=== PATIENT | male | born 1945 | race Caucasian/White ===

== ENCOUNTER 2018-02-15 11:00 | Day surgery (SDC) | payer MEDICARE ==
[~2018-02-15] VITALS: Ht 182.9 cm; Wt 118.8 kg
[~2018-02-15 11:00] MED LIST: ACET500 PO; ACETAMINOPHEN-1 EACH; ALBU90OI61 INH; ALLEGRA ALLERG180 M1 PO; BETA1 PO; Benicar Hct 401 EAC1 PO; CEFD300 PO; CETI10 PO; CYCL10 PO; DIAZ5 PO; DIPASPER PO; FENO160 PO; FISH1000 PO; FLECTOR PATCH; FLUT.05NI; FLUT44OIA IH; FLUT44OIA INH; Ferrous Glucon324 M1 PO; GLIM2 PO; Glucophage1000 MG PO; HYDACE5 PO; HYDCHL25 PO; MAGOXI400 PO; MELO7.5 PO; METF500 PO; MONT10T PO; NIFE30ER PO; OLME40 PO; ONDA4 PO
== END 2018-02-15 13:56 | disposition home or self-care (01) ==
LOC: ORSCSDS 11:00
PROVIDERS: Internal Medicine Gastroenterology
PROC: 0DBL8ZX Excision of Transverse Colon, Via Natural or Artificial Opening Endoscopic, Diagnostic (ICD-10-PCS; principal; 2018-02-15 12:45)
PROC: 0DBH8ZX Excision of Cecum, Via Natural or Artificial Opening Endoscopic, Diagnostic (ICD-10-PCS; principal; 2018-02-15 12:45)
DX: Z86.010 Personal history of colon polyps (principal); Z80.0 Family history of malignant neoplasm of digestive organs; D12.0 Benign neoplasm of cecum; D12.3 Benign neoplasm of transverse colon; K57.30 Diverticulosis of large intestine without perforation or abscess without bleeding; K64.8 Other hemorrhoids; E11.9 Type 2 diabetes mellitus without complications; I10 Essential (primary) hypertension; G47.33 Obstructive sleep apnea (adult) (pediatric); J45.909 Unspecified asthma, uncomplicated; Z87.891 Personal history of nicotine dependence; Z79.899 Other long term (current) drug therapy
CPT/HCPCS: 82947; 88305; J2250; J7120

== ENCOUNTER 2019-02-22 12:03 | Day surgery (SDC) | payer MEDICARE ==
[~2019-02-22] VITALS: Ht 182.9 cm; Wt 119.7 kg
[~2019-02-22 12:03] MED LIST changes: +ASCO500 PO; +BENZ100A PO; +CLOP75 PO; +DILT180 PO; +FISH OIL 1,0001 EAC1 PO; +FLONASE ALLERG9.9 ML; +FOLBIC RF TABL1 EACH PO; +GLIM4 PO; +Ipratropium Bro15 ML NS; +Ipratropium Bro30 ML INH; +Lipitor20 MG PO; +MOVE FREE JOIN1 EACH PO; +OCUVITE EYE +1 EACH PO; +PIOG15 PO; +XARELTO20 MG PO
[2019-02-22] MEDS ORDERED: ALLER-FEX180 MG PO (12:47)
[2019-02-22] MEDS ORDERED: Ipratropium Bro30 ML INH (12:48)
[2019-02-22] MEDS ORDERED: Flovent 44 mc10.6 GM INH (12:48)
[2019-02-22] MEDS ORDERED: LO-DOSE ASPIRIN81 MG PO (12:49)
[2019-02-22] MEDS ORDERED: OLME20 PO (12:49)
[2019-02-22] MEDS ORDERED: VOLTAREN100 GM (12:50)
[2019-02-22] MEDS ORDERED: METO25ER PO (12:50)
[2019-02-22] MEDS ORDERED: BETA.05TCA (12:51)
--- NOTE | 2019-02-22 14:26 | NUR ---
02/22/19 1426 Chantal Reynaga INCOMPLETE PREP PROCEDURE ABORTED WITHOUT REACHING CECUM.
--- NOTE | 2019-02-22 14:37 | NUR ---
02/22/19 1437 Chantal Reynaga PATIENT WAS SENT TO DR LOWERY'S OFFICE TO GET INFORMATION ON RESCHEDULE AND NEW PREP INSTRUCTIONS. [facility] AND THAT RESTARTING XARELTO WILL DEPEND ON WHEN NEXT PROCEDURE IS SCHEDULED PATIENT ADVISED TO STAY ON FULL LIQUID DIET NOW AND CLEAR LIQUIDS WILL DEPEND ON WHEN NEXT PROCEDURE WILL BE. PATIENT AND BOTH VERBALIZE UNDERSTANDING OF THIS AND ARE GOING STRAIGHT TO THE OFFICE.
== END 2019-02-22 13:40 | disposition home or self-care (01) ==
LOC: ORSCSDS 12:03
PROVIDERS: Internal Medicine Gastroenterology
PROC: 0DJD8ZZ Inspection of Lower Intestinal Tract, Via Natural or Artificial Opening Endoscopic (ICD-10-PCS; principal; 2019-02-22 13:15)
DX: Z12.11 Encounter for screening for malignant neoplasm of colon (principal); Z86.010 Personal history of colon polyps; I10 Essential (primary) hypertension; E11.9 Type 2 diabetes mellitus without complications; J45.909 Unspecified asthma, uncomplicated; E66.9 Obesity, unspecified; G47.33 Obstructive sleep apnea (adult) (pediatric); Z79.84 Long term (current) use of oral hypoglycemic drugs; Z79.899 Other long term (current) drug therapy
CPT/HCPCS: 82947; J2704; J7120

== ENCOUNTER 2019-02-26 06:43 | Day surgery (SDC) | payer MEDICARE ==
[~2019-02-26] VITALS: Ht 182.9 cm; Wt 120.7 kg
[~2019-02-26 06:43] MED LIST changes: +ALLER-FEX180 MG PO; +BETA.05TCA; +Flovent 44 mc10.6 GM INH; +LO-DOSE ASPIRIN81 MG PO; +METO25ER PO; +OLME20 PO; +VOLTAREN100 GM
--- NOTE | 2019-02-26 08:34 | NUR ---
02/26/19 0834 Chantal Reynaga GROUNDING PAD ON RIGHT FLANK--NO PROBLEMS
== END 2019-02-26 09:33 | disposition home or self-care (01) ==
LOC: ORSCSDS 06:43
PROVIDERS: Internal Medicine Gastroenterology
PROC: 0DBP8ZX Excision of Rectum, Via Natural or Artificial Opening Endoscopic, Diagnostic (ICD-10-PCS; principal; 2019-02-26 08:00)
PROC: 0DBL8ZX Excision of Transverse Colon, Via Natural or Artificial Opening Endoscopic, Diagnostic (ICD-10-PCS; principal; 2019-02-26 08:00)
PROC: 0DBK8ZX Excision of Ascending Colon, Via Natural or Artificial Opening Endoscopic, Diagnostic (ICD-10-PCS; principal; 2019-02-26 08:00)
DX: Z12.11 Encounter for screening for malignant neoplasm of colon (principal); Z86.010 Personal history of colon polyps; D12.2 Benign neoplasm of ascending colon; D12.3 Benign neoplasm of transverse colon; K62.1 Rectal polyp; E11.9 Type 2 diabetes mellitus without complications; I48.91 Unspecified atrial fibrillation; Z79.01 Long term (current) use of anticoagulants; G47.33 Obstructive sleep apnea (adult) (pediatric); Z87.891 Personal history of nicotine dependence; E66.01 Morbid (severe) obesity due to excess calories; Z68.36 Body mass index [BMI] 36.0-36.9, adult; Z79.899 Other long term (current) drug therapy
CPT/HCPCS: 82947; 88305; J2704; J7120

== ENCOUNTER 2019-03-04 23:18 | Observation (INO) | payer MEDICARE ==
[~2019-03-04] VITALS: Ht 182.9 cm; Wt 118.0 kg
[2019-03-05 00:10] LABS: BASOPHILS ABSOLUTE AUTO 0.04 K/mm3 (0.00-0.23); BASOPHILS PERCENT AUTO 1 % (0-2); EOSINOPHILS ABSOLUTE AUTO 0.12 K/mm3 (0.00-0.68); EOSINOPHILS PERCENT AUTO 2 % (0-6); Hematocrit 38.8 % (37.0-53.0); Hemoglobin 12.6 g/dL (13.5-17.5); IMMATURE GRAN ABSOLUTE AUTO 0.03 K/mm3 (0.00-0.10); IMMATURE GRAN PERCENT AUTO 1 % (0-1); LYMPHOCYTES ABSOLUTE AUTO 1.89 K/mm3 (0.84-5.20); LYMPHOCYTES PERCENT AUTO 35 % (21-46); MONOCYTES ABSOLUTE AUTO 0.45 K/mm3 (0.16-1.47); MONOCYTES PERCENT AUTO 8 % (4-13); Mean Corpuscular HGB 30.9 pg (26.0-34.0); Mean Corpuscular HGB Conc 32.5 g/dL (31.5-36.5); Mean Corpuscular Volume 95 fL (80-100); Mean Platelet Volume 10.6 fL (9.1-12.4); NEUTROPHILS ABSOLUTE AUTO 2.92 K/mm3 (1.96-9.15); NEUTROPHILS PERCENT AUTO 54 % (41-73); Platelet Count 127 K/mm3 (150-400); RDW Coefficient Variation 13.5 % (11.7-14.2); RDW Standard Deviation 47.4 fL (35.1-46.3); Red Blood Cell Count 4.08 M/mm3 (4.30-5.90); White Blood Cell Count 5.45 K/mm3 (4.00-11.30)
[2019-03-05 00:29] LABS: Alanine Aminotransfer (ALT/SGP 43 U/L (12-78); Albumin, Blood 3.5 g/dL (3.4-5.0); Albumin/Globulin Ratio 1.1 (0.8-1.8); Alk Phos 27 U/L (50-136); Anion Gap 7 mmol/L (6-16); Aspartate Aminotrans (AST/SGOT 22 U/L (12-37); Bilirubin, Total 0.5 mg/dL (0.1-1.0); Blood Urea Nitrogen 23 mg/dL (8-24); Bun/Creatinine Ratio 34.6 (12.0-20.0); CO2, Blood 28 mmol/L (21-32); Calcium, Blood 8.7 mg/dL (8.5-10.1); Chloride, Blood 107 mmol/L (98-108); Creatinine, Blood 0.66 mg/dL (0.60-1.20); Globulin, Blood 3.3 g/dL (2.2-4.0); Glomerular Filtration Rate >60 (60-); Glucose, Blood 109 mg/dL (70-99); Sodium, Blood 142 mmol/L (136-145); Total Protein, Blood 6.8 g/dL (6.4-8.2)
[2019-03-05 01:07] LABS: International Normalized Ratio 1.19; Prothrombin Time Results 12.4 Sec (9.7-11.5)
[2019-03-05 04:48] LABS: Hematocrit 35.6 % (37.0-53.0); Hemoglobin 11.4 g/dL (13.5-17.5)
[2019-03-05 04:49] LABS: Hematocrit 35.7 % (37.0-53.0); Hemoglobin 11.4 g/dL (13.5-17.5); Mean Corpuscular HGB 30.5 pg (26.0-34.0); Mean Corpuscular HGB Conc 31.9 g/dL (31.5-36.5); Mean Corpuscular Volume 96 fL (80-100); Mean Platelet Volume 10.7 fL (9.1-12.4); Platelet Count 135 K/mm3 (150-400); RDW Coefficient Variation 13.5 % (11.7-14.2); RDW Standard Deviation 47.6 fL (35.1-46.3); Red Blood Cell Count 3.74 M/mm3 (4.30-5.90); White Blood Cell Count 4.79 K/mm3 (4.00-11.30)
[2019-03-05 05:12] LABS: Alanine Aminotransfer (ALT/SGP 36 U/L (12-78); Albumin, Blood 3.1 g/dL (3.4-5.0); Alk Phos 21 U/L (50-136); Anion Gap 6 mmol/L (6-16); Aspartate Aminotrans (AST/SGOT 13 U/L (12-37); Bilirubin, Total 0.5 mg/dL (0.1-1.0); Blood Urea Nitrogen 23 mg/dL (8-24); Bun/Creatinine Ratio 34.5 (12.0-20.0); CO2, Blood 28 mmol/L (21-32); Calcium, Blood 8.3 mg/dL (8.5-10.1); Chloride, Blood 107 mmol/L (98-108); Creatinine, Blood 0.67 mg/dL (0.60-1.20); Glomerular Filtration Rate >60 (60-); Glucose, Blood 103 mg/dL (70-99); Potassium, Blood 3.8 mmol/L (3.5-5.5); Sodium, Blood 141 mmol/L (136-145); Total Protein, Blood 6.1 g/dL (6.4-8.2)
--- NOTE | 2019-03-05 06:06 | NUR ---
having trouble sleeping, turned off oximeter due to alarm, nurse informed RT who said they would bring paperwork, tried skds but decided they were keeping him awake and thus requested they be removed, tele attached hr/r 62/nsr, up walking to bathroom on own, bed alarm on, no stool but red stripes on toilet paper, vss, and states he is feeling fine
--- NOTE | 2019-03-05 07:25 | NUR ---
a+o, able to make needs known, call light in reach, saline locked, Cpap, refused skds and oximeter, SBAR report given to day shift
--- NOTE | 2019-03-05 08:41 | NUR ---
PT HAD MED BROWN FORMED STOOL WITH SMALL AMOUNT OF RED BLOOD IN TOILET. PT REPORTS IMPROVEMENT IN BLEEDING. DR. LEWIS CONSULT CALLED IN.
[2019-03-05 10:59] LABS: Hematocrit 38.4 % (37.0-53.0); Hemoglobin 12.4 g/dL (13.5-17.5)
--- NOTE | 2019-03-05 16:04 | NUR ---
PT BROUGHT FROM ROOM 312. AT BEDSIDE. TOLERATED WELL.
--- NOTE | 2019-03-05 16:09 | NUR ---
1515 PT TO DAY SURGERY FOR UPPER ENDOSCOPY.
--- NOTE | 2019-03-05 16:48 | NUR ---
03/05/19 1648 Darrin Roca Bite Block PlacedPatient to ENDO 1History, Chart, Medications and Allergies reviewed before start of procedure.MONITOR INTACT WITH CONTINUOUS PULSE OXIMETRY AND INTERMITTENT BP.O2 VIA N/C INTACT THROUGHOUT SEDATION/PROCEDURE.See Anesthesia record
--- NOTE | 2019-03-05 17:37 | NUR ---
SHIFT SUMMARY. PT HAS RETURNED FROM DAY SURGERY, NO BLEEDING FOUND ON ENDOSCOPY PER RN REPORT. PT IS TO BE NPO AFTER MIDNIGHT FOR COLONOSCOPY TOMORROW AFTERNOON. PT SWALLOWING WITHOUT ISSUE.
--- NOTE | 2019-03-05 18:21 | NUR ---
SPOKE WITH DR. LEWIS. PT IS TO BE NPO AT 1800, START GOLYETLY TONIGHT AND FINISH IN THE MORNING FOR COLONOSCOPY IN THE AFTERNOON.
[2019-03-05 19:40] LABS: Hematocrit 36.2 % (37.0-53.0); Hemoglobin 11.7 g/dL (13.5-17.5)
[2019-03-06 05:38] LABS: Hematocrit 36.9 % (37.0-53.0); Hemoglobin 12.1 g/dL (13.5-17.5)
--- NOTE | 2019-03-06 07:25 | NUR ---
drinking medication for procedure today, a+o, call light in reach, saline locked, on room air, still having brown stools thought they are soft, anvik, used cpap during night
--- NOTE | 2019-03-06 18:17 | NUR ---
STUDENT RN ASSISTING WITH PREOPERATIVE CARE. AGREE WITH HER CHARTING AND CARE. IV TO LEFT FA DC'D, REPORTED INFILTRATED WHEN RECEIVED REPORT FROM MED FLOOR RN. TENDER. ADDITIONAL IV TO L HAND PATENT, USED FOR PROCEDURE.
--- NOTE | 2019-03-06 18:26 | NUR ---
03/06/19 1826 Darrin Roca Patient to ENDO 1History, Chart, Medications and Allergies reviewed before start of procedure.MONITOR INTACT WITH CONTINUOUS PULSE OXIMETRY AND INTERMITTENT BP.O2 VIA N/C INTACT THROUGHOUT SEDATION/PROCEDURE.See Anesthesia record
--- NOTE | 2019-03-06 19:16 | NUR ---
SHIFT SUMMARY PATIENT A&O X4, INDEPENDENT IN THE ROOM. DENIES ANY PAIN OR SOB THIS SHIFT. NPO FOR COLONSCOPY. GO LIGHTY PREP DONE THIS AM. PATIENT DENIES ANY BLOODY STOOLS THIS SHIFT. RN MEDICATED THROUGHOUT SHIFT PER E JAN. PATIENT BACK FROM PROCEDURE AT 1850. VSS. POST OP VS STARTED. REPORT GIVEN TO ONCOMING RN.
== END 2019-03-06 20:32 | disposition home or self-care (01) ==
LOC: ER 23:18 → MEDS 23:19
PROVIDERS: Emergency Medicine; Family Medicine; Internal Medicine Gastroenterology; ADMIT Internal Medicine
PROC: 0DJ08ZZ Inspection of Upper Intestinal Tract, Via Natural or Artificial Opening Endoscopic (ICD-10-PCS; 2019-03-05)
PROC: 0DJD8ZZ Inspection of Lower Intestinal Tract, Via Natural or Artificial Opening Endoscopic (ICD-10-PCS; principal; 2019-03-06 16:00)
DX: K64.8 Other hemorrhoids (principal); K29.00 Acute gastritis without bleeding; K20.9 Esophagitis, unspecified; I48.91 Unspecified atrial fibrillation; D64.9 Anemia, unspecified; M79.81 Nontraumatic hematoma of soft tissue; E11.9 Type 2 diabetes mellitus without complications; I25.10 Atherosclerotic heart disease of native coronary artery without angina pectoris; J45.909 Unspecified asthma, uncomplicated; G47.30 Sleep apnea, unspecified; Z86.73 Personal history of transient ischemic attack (TIA), and cerebral infarction without residual deficits; Z79.899 Other long term (current) drug therapy; Z88.8 Allergy status to other drugs, medicaments and biological substances; Z99.89 Dependence on other enabling machines and devices
CPT/HCPCS: 36415; 80053; 82947; 85014; 85018; 85025; 85027; 85610; 85730; 86850; 86900; 86901; 94640; 94660; 94762; 99284-25; G0378; J2405; J2704; J7120

== ENCOUNTER 2021-07-02 11:56 | Day surgery (SDC) | payer MEDICARE ==
[~2021-07-02] VITALS: Ht 182.9 cm; Wt 119.1 kg
[~2021-07-02 11:56] MED LIST changes: +ALBU90OI INH; +ALLEGRA ALLERG180 MG PO; +ATOR20 PO; +ATROVENT HFA12.9 GM INH; +Betamethasone V15 GM; +FERROUS GLUCON324 M7 PO; +FLONASE SENSIM5.9 M1; +FLOVENT HFA12 GM INH; +GLUCOPHAGE1000 M1 PO; +LOSA50 PO; +MAGNESIUM OXID500 MG PO; +Ropinirole HCl0.5 MG PO; +Vitamin B-12100 MCG PO
== END 2021-07-02 14:20 | disposition home or self-care (01) ==
LOC: ORSCSDS 11:56
PROVIDERS: Internal Medicine Gastroenterology
PROC: 0DBL8ZX Excision of Transverse Colon, Via Natural or Artificial Opening Endoscopic, Diagnostic (ICD-10-PCS; principal; 2021-07-02 13:15)
DX: Z12.11 Encounter for screening for malignant neoplasm of colon (principal); Z86.010 Personal history of colon polyps; D12.3 Benign neoplasm of transverse colon; K64.8 Other hemorrhoids; K57.30 Diverticulosis of large intestine without perforation or abscess without bleeding; I48.91 Unspecified atrial fibrillation; G47.33 Obstructive sleep apnea (adult) (pediatric); E78.5 Hyperlipidemia, unspecified; E11.9 Type 2 diabetes mellitus without complications; E66.9 Obesity, unspecified; Z68.35 Body mass index [BMI] 35.0-35.9, adult; Z79.84 Long term (current) use of oral hypoglycemic drugs; Z79.899 Other long term (current) drug therapy
CPT/HCPCS: 82947; 88305; J2704; J7120

== ENCOUNTER 2021-08-05 10:16 | Emergency (ER) | payer MEDICARE ==
[~2021-08-05] VITALS: Ht 182.9 cm; Wt 104.3 kg
[2021-08-05 11:16] LABS: BASOPHILS ABSOLUTE AUTO 0.03 K/mm3 (0.00-0.23); BASOPHILS PERCENT AUTO 1 % (0-2); EOSINOPHILS ABSOLUTE AUTO 0.06 K/mm3 (0.00-0.68); EOSINOPHILS PERCENT AUTO 1 % (0-6); Hematocrit 42.7 % (37.0-53.0); Hemoglobin 14.6 g/dL (13.5-17.5); IMMATURE GRAN ABSOLUTE AUTO 0.02 K/mm3 (0.00-0.10); IMMATURE GRAN PERCENT AUTO 0 % (0-1); LYMPHOCYTES ABSOLUTE AUTO 1.46 K/mm3 (0.84-5.20); LYMPHOCYTES PERCENT AUTO 26 % (21-46); MONOCYTES ABSOLUTE AUTO 0.35 K/mm3 (0.16-1.47); MONOCYTES PERCENT AUTO 6 % (4-13); Mean Corpuscular HGB 31.3 pg (26.0-34.0); Mean Corpuscular HGB Conc 34.2 g/dL (31.5-36.5); Mean Corpuscular Volume 92 fL (80-100); Mean Platelet Volume 10.8 fL (9.1-12.4); NEUTROPHILS ABSOLUTE AUTO 3.64 K/mm3 (1.96-9.15); NEUTROPHILS PERCENT AUTO 65 % (41-73); Platelet Count 206 K/mm3 (150-400); RDW Coefficient Variation 13.4 % (11.7-14.2); RDW Standard Deviation 45.1 fL (35.1-46.3); Red Blood Cell Count 4.66 M/mm3 (4.30-5.90); White Blood Cell Count 5.56 K/mm3 (4.00-11.30)
[2021-08-05 11:35] LABS: Alanine Aminotransfer (ALT/SGP 46 U/L (12-78); Albumin, Blood 3.4 g/dL (3.4-5.0); Albumin/Globulin Ratio 0.9 (0.8-1.8); Alk Phos 28 U/L (50-136); Anion Gap 5 mmol/L (6-16); Aspartate Aminotrans (AST/SGOT 39 U/L (12-37); Bilirubin, Total 0.8 mg/dL (0.1-1.0); Blood Urea Nitrogen 20 mg/dL (8-24); CO2, Blood 28 mmol/L (21-32); Calcium, Blood 8.7 mg/dL (8.5-10.1); Chloride, Blood 107 mmol/L (98-108); Creatinine, Blood 0.69 mg/dL (0.60-1.20); Globulin, Blood 3.6 g/dL (2.2-4.0); Glomerular Filtration Rate >60 (60-); Glucose, Blood 148 mg/dL (70-99); Potassium, Blood 4.4 mmol/L (3.5-5.5); Sodium, Blood 140 mmol/L (136-145); Troponin I <0.015 ng/mL (0.000-0.040)
[2021-08-05] MEDS ORDERED: TRULICITY1.5 MG/0.1 INJ (13:33)
== END 2021-08-05 14:28 | disposition home or self-care (01) ==
LOC: ER 10:16
PROVIDERS: Emergency Medicine Emergency Medical Services
DX: I48.92 Unspecified atrial flutter (principal); I48.91 Unspecified atrial fibrillation; I10 Essential (primary) hypertension; E11.9 Type 2 diabetes mellitus without complications; I25.10 Atherosclerotic heart disease of native coronary artery without angina pectoris; G47.33 Obstructive sleep apnea (adult) (pediatric); Z88.8 Allergy status to other drugs, medicaments and biological substances; Z79.899 Other long term (current) drug therapy; Z79.84 Long term (current) use of oral hypoglycemic drugs; Z79.01 Long term (current) use of anticoagulants; Z86.718 Personal history of other venous thrombosis and embolism
CPT/HCPCS: 36415; 71045; 80053; 83690; 83880; 84484; 85025; 93005; 93010; 96374; 96376; 99285-25; A9270

== ENCOUNTER 2021-08-05 16:53 | Emergency (ER) | payer MEDICARE ==
[~2021-08-05] VITALS: Ht 182.9 cm; Wt 119.3 kg
[~2021-08-05 16:53] MED LIST changes: +TRULICITY1.5 MG/0.1 INJ
== END 2021-08-05 19:36 | disposition home or self-care (01) ==
LOC: ER 16:53
DX: I48.91 Unspecified atrial fibrillation (principal); I48.92 Unspecified atrial flutter; E11.9 Type 2 diabetes mellitus without complications; I10 Essential (primary) hypertension; I25.10 Atherosclerotic heart disease of native coronary artery without angina pectoris; G47.33 Obstructive sleep apnea (adult) (pediatric); Z88.8 Allergy status to other drugs, medicaments and biological substances; Z79.899 Other long term (current) drug therapy; Z79.84 Long term (current) use of oral hypoglycemic drugs; Z79.01 Long term (current) use of anticoagulants; Z86.718 Personal history of other venous thrombosis and embolism; Z87.891 Personal history of nicotine dependence
CPT/HCPCS: 93005; 93010; 99283-25

== ENCOUNTER 2021-10-14 12:53 | Emergency (ER) | payer MEDICARE ==
[~2021-10-14] VITALS: Ht 182.9 cm; Wt 118.4 kg
[2021-10-14] MEDS ORDERED: Voltaren100 GM TOP (13:32)
[2021-10-14] MEDS ORDERED: METO25ER PO (13:35)
[2021-10-14] MEDS ORDERED: MAGNESIUM OXID500 MG PO (13:39)
== END 2021-10-14 14:21 | disposition home or self-care (01) ==
LOC: ER 12:53
DX: I83.892 Varicose veins of left lower extremity with other complications (principal); E11.9 Type 2 diabetes mellitus without complications; I10 Essential (primary) hypertension; G47.33 Obstructive sleep apnea (adult) (pediatric); I48.92 Unspecified atrial flutter; I25.10 Atherosclerotic heart disease of native coronary artery without angina pectoris; I48.91 Unspecified atrial fibrillation; Z86.718 Personal history of other venous thrombosis and embolism; Z86.73 Personal history of transient ischemic attack (TIA), and cerebral infarction without residual deficits; Z87.891 Personal history of nicotine dependence; Z88.8 Allergy status to other drugs, medicaments and biological substances; Z79.899 Other long term (current) drug therapy; Z79.84 Long term (current) use of oral hypoglycemic drugs
CPT/HCPCS: 12001; 99282-25

== ENCOUNTER 2022-05-25 17:14 | Emergency (ER) | payer MEDICARE ==
[~2022-05-25] VITALS: Ht 182.9 cm; Wt 120.7 kg
[~2022-05-25 17:14] MED LIST changes: +Voltaren100 GM TOP
== END 2022-05-25 19:19 | disposition home or self-care (01) ==
LOC: ER 17:14
DX: S09.90XA Unspecified injury of head, initial encounter (principal); S00.03XA Contusion of scalp, initial encounter; E11.9 Type 2 diabetes mellitus without complications; I10 Essential (primary) hypertension; I25.10 Atherosclerotic heart disease of native coronary artery without angina pectoris; W19.XXXA Unspecified fall, initial encounter; Z88.8 Allergy status to other drugs, medicaments and biological substances; Z79.899 Other long term (current) drug therapy; Z79.01 Long term (current) use of anticoagulants; Z79.84 Long term (current) use of oral hypoglycemic drugs; Z87.891 Personal history of nicotine dependence
CPT/HCPCS: 70450; 73030; A9270

== ENCOUNTER 2025-06-03 09:58 | Emergency (ER) | payer OTHER ==
[~2025-06-03] VITALS: Ht 182.9 cm; Wt 118.4 kg
[2025-06-03 12:15] VITALS: BP 121/68
== END 2025-06-03 12:23 | disposition home or self-care (01) ==
LOC: ER 09:58
DX: S00.81XA Abrasion of other part of head, initial encounter (principal); W01.0XXA Fall on same level from slipping, tripping and stumbling without subsequent striking against object, initial encounter; E11.9 Type 2 diabetes mellitus without complications; I10 Essential (primary) hypertension; I25.10 Atherosclerotic heart disease of native coronary artery without angina pectoris; I48.91 Unspecified atrial fibrillation; J45.909 Unspecified asthma, uncomplicated; Z88.8 Allergy status to other drugs, medicaments and biological substances; Z79.899 Other long term (current) drug therapy; Z79.84 Long term (current) use of oral hypoglycemic drugs; Z79.01 Long term (current) use of anticoagulants; Z87.891 Personal history of nicotine dependence
CPT/HCPCS: 70450; 99284-25